=== PATIENT | male | born 1960 | race Hispanic/Latino ===

== ENCOUNTER → 2024-04-26 | Outpatient (CLI) | payer MEDICARE ==
--- NOTE | 2024-04-26 12:54 | HMCIMG ---
CT ABDOMEN/PELVIS W/O CONTRAST REASON: Unspecified abdominal pain COMPARISON: None. FINDINGS: Lung bases are clear. There is mild nodularity of the hepatic contour most prominent in left lobe. There is mild to moderate splenomegaly. These findings are of concern for cirrhosis. There is no ascites. There is no evidence of varices. . There are normal-appearing kidneys.. Pancreas appears unremarkable. There are multiple small stones in an otherwise normal-appearing gallbladder. There is no wall thickening or edema to suggest acute cholecystitis. Bowel loops appear unremarkable. There has been a previous appendectomy. There is no evidence of free fluid or intraperitoneal air. There are no focal fluid collections. Aorta and retroperitoneum appear normal as do pelvic soft tissue structures. There is a ventral hernia in the anterior abdominal midline several centimeters above the umbilicus. This contains only mesenteric fat. The fat within the hernia is somewhat increased attenuation suggesting a possible component of strangulation. Osseous structures appear unremarkable. IMPRESSION: 1. There is a ventral hernia several centimeters above the umbilicus, hernia sac measures 10 cm, anterior abdominal wall opening measures 2.5 cm. 2. The fat within the hernia sac is increased attenuation suggesting a component of edema, this could indicate early strangulation, there are no bowel loops involved within the hernia. 3. Mildly nodular liver, mild to moderate splenomegaly, nonspecific but these findings could reflect cirrhosis. CT was performed with one or more following dose reduction techniques: automated exposure control, adjustment of the mA and kv according to patient's size, or use of a iterative reconstruction technique.
== END | disposition home or self-care (01) ==
LOC: RAH 10:26
PROVIDERS: ATTEND Surgery
DX: K43.9 Ventral hernia without obstruction or gangrene (principal); R16.1 Splenomegaly, not elsewhere classified; K80.20 Calculus of gallbladder without cholecystitis without obstruction; R10.9 Unspecified abdominal pain
CPT/HCPCS: 74176